=== PATIENT | male | born 1950 | race Caucasian/White ===

== ENCOUNTER 2018-05-15 07:04 | Day surgery (SDC) ==
[2018-05-15] MEDS: TETRACAINE 0.5% UNIT-DOSE OP PRN ×2 (07:20→08:55)
[2018-05-15] MEDS: BETADINE OPTH PREP OP PRN ×2 (07:21→08:46)
[2018-05-15] MEDS: CYCLOGYL 2% OPTH OP PRN ×3 (07:22→07:32)
[2018-05-15] MEDS ORDERED: ZOFRAN 4 MG/2 ML IVP ONE (08:11)
[2018-05-15] MEDS ORDERED: LIDOCAINE 1% 20 ML MDV ID STA (08:11)
[2018-05-15] MEDS ORDERED: BRIMONIDINE TARTRATE 0.2% OPTH SOL OP PRN (08:11)
[2018-05-15] MEDS ORDERED: DEX-MOXI-KETOR OPTH INJ 1/0.5/0.4 MG/ML IO ONE (08:11)
[2018-05-15] MEDS ORDERED: AK-DILATE 10% OPTH SOL OP PRN (08:11)
[2018-05-15] MEDS ORDERED: LIDOCAINE 1%/PHENYLEPHRINE 1.5% BSS (SURGERY) INTRAOCULA ONE (08:11)
[2018-05-15] MEDS ORDERED: BSS WITH EPINEPHRINE OP ONE (08:11)
[2018-05-15] MEDS ORDERED: SUBLIMAZE ONE (08:50)
[2018-05-15] MEDS ORDERED: VERSED ONE (08:50)
[2018-05-15 15:52] VITALS: BP 127/56; TEMP 98.7
== END 2018-05-15 09:50 | disposition home or self-care (01) ==
LOC: SURG 07:04
PROVIDERS: ATTEND Ophthalmology
DX: H25.812 Combined forms of age-related cataract, left eye (principal)